=== PATIENT | male | born 1960 | race Caucasian/White ===

== ENCOUNTER 2016-06-13 11:53 | Inpatient (IN) | payer OTHER ==
[2016-06-13 14:09] VITALS: BMI 39.4
--- NOTE | 2016-06-13 14:52 | HP ---
CIWA Score - CIWA Score Nausea/Vomitin-No Nausea/No Vomiting Muscle Tremors: 4-Moderate,w/Arms Extend Anxiety: 4-Mod. Anxious/Guarded Agitation: 4-Moderately Restless Paroxysmal Sweats: 3 Orientation: 0-Oriented Tacttile Disturbances: 0-None Auditory Disturbances: 0-None Visual Disturbances: 0-None Headache: 0-None Present CIWA-Ar Total Score: 15 Admission ROS BHS - HPI Chief Complaint: I am here to detox off the xanax Allergies/Adverse Reactions: Allergies Allergy/AdvReac Type Severity Reaction Status Date / Time NSAIDS (Non-Steroidal Allergy Severe Swelling Verified 06/13/16 14:11 Anti-Inflamma History of Present Illness: pt is a 56yr old male with a history of benzodiazapine dependence seeking detox for treatment. pt is on 80mg last dose received today. verification done. Exam Limitations: No Limitations - Ebola screening Have you traveled outside of the country in the last 21 days: No Have you had contact with anyone from an Ebola affected area: No Have you been sick,other than usual withdrawal symptoms: No Do you have a fever: No - Review of Systems Constitutional: Chills, Diaphoresis EENT: reports: Tearing, Nose Congestion Respiratory: reports: No Symptoms reported Cardiac: reports: No Symptoms Reported GI: reports: Poor Appetite, Poor Fluid Intake : reports: No Symptoms Reported Musculoskeletal: reports: No Symptoms Reported Integumentary: reports: Sweating Neuro: reports: Tingling, Tremors Endocrine: reports: Excessive Sweating, Flushing, Intolerance to Cold, Intolerance to Heat Hematology: reports: No Symptoms Reported Psychiatric: reports: Judgement Intact, Mood/Affect Appropiate, Orientated x3, Agitated, Anxious Other Systems: Reviewed and Negative Patient History - Patient Medical History Hx Anemia: No Hx Asthma: No Hx Chronic Obstructive Pulmonary Disease (COPD): No Hx Cancer: No Hx Cardiac Disorders: No Hx Congestive Heart Failure: No Hx Hypertension: No Hx Hypercholesterolemia: No Hx Pacemaker: No HX Cerebrovascular Accident: No Hx Seizures: No Hx Diabetes: No Hx Gastrointestinal Disorders: No Hx Liver Disease: No Hx Genitourinary Disorders: No Hx Sexually Transmitted Disorders: No Hx Renal Disease (ESRD): No Hx Thyroid Disease: No Hx Human Immunodeficiency Virus (HIV): No (NEGATIVE HX) Hx Hepatitis C: No Hx Depression: Yes Hx Suicide Attempt: No Hx Bipolar Disorder: No Hx Schizophrenia: No - Patient Surgical History Past Surgical History: No Hx Neurologic Surgery: No Hx Cataract Extraction: No Hx Cardiac Surgery: No Hx Lung Surgery: No Hx Breast Surgery: No Hx Breast Biopsy: No Hx Abdominal Surgery: No Hx Appendectomy: No Hx Cholecystectomy: No Hx Genitourinary Surgery: No Hx Orthopedic Surgery: No Anesthesia Reaction: No - PPD History Previous Implant?: Yes Documented Results: Negative w/proof Implanted On Prior [facility] Admission?: Yes Date: 03/19/16 Results: 0 mm PPD to be Administered?: No - Reproductive History Patient is a Female of Child Bearing Age (11 -55 yrs old): No - Smoking Cessation Smoking history: Current every day smoker Have you smoked in the past 12 months: Yes Aproximately how many cigarettes per day: 10 Hx Chewing Tobacco Use: No Initiated information on smoking cessation: Yes 'Breaking Loose' booklet given: 06/13/16 - Substance & Tx. History Hx Alcohol Use: No Hx Substance Use: Yes Substance Use Type: Tranquilizers Hx Substance Use Treatment: Yes - Substances Abused Xanax Route: Oral Frequency: Daily Amount used: 4-6 mg. Age of first use: 54 Date of Last Use: 06/12/16 Family Disease History - Family Disease History Family History: Denies Admission Physical Exam BHS - Vital Signs Vital Signs: Vital Signs - 24 hr 06/13/16 14:05 Temperature 96.8 F L Pulse Rate 71 Respiratory 18 Rate Blood Pressure 151/74 - Physical General Appearance: Yes: Appropriately Dressed, Mild Distress, Obese, Tremorous , Irritable, Sweating, Anxious HEENTM: Yes: Normal Voice, Nasal Congestion Respiratory: Yes: Lungs Clear, Normal Breath Sounds, No Respiratory Distress Neck: Yes: No masses,lesions,Nodules Breast: Yes: Within Normal Limits Cardiology: Yes: Regular Rhythm, Regular Rate, S1, S2 Abdominal: Yes: Normal Bowel Sounds, Non Tender Genitourinary: Yes: Within Normal Limits Back: Yes: Normal Inspection Musculoskeletal: Yes: full range of Motion, Gait Steady Extremities: Yes: Normal Capillary Refill, Normal Inspection, Tremors Neurological: Yes: Fully Oriented, Alert, Normal Response Integumentary: Yes: Normal Color, Diaphoresis Lymphatic: Yes: Within Normal Limits - Diagnostic (1) Nicotine dependence Current Visit: Yes Status: Chronic Qualifiers: Nicotine product type: cigarettes Substance use status: uncomplicated Qualified Code(s): F17.210 - Nicotine dependence, cigarettes, uncomplicated (2) Uncomplicated sedative, 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 Cleared for Admission [facility] - Detox or Rehab [facility] Level of Care: Medically Managed Detox Regimen/Protocol: Valium S Breath Alcohol Content Breath Alcohol Content: 0 Urine Drug Screen - Results Drug Screen Negative: No Urine Drug Screen Results: BZO-Benzodiazepines, MTD-Methadone
[2016-06-13] MEDS ORDERED: NICOTINE POLACRILEX 4 MG GUM BUC PRN (15:10)
[2016-06-13] MEDS ORDERED: P-EPHED 60MG/TRIPROLIDI 2.5MG TABLET PO PRN (15:10)
[2016-06-13] MEDS ORDERED: MAG HYDROX/AL HYDROX/SIMETH 30 ML UNIT-DOSE CUP PO PRN (15:10)
[2016-06-13] MEDS ORDERED: MAGNESIUM HYDROX 2400MG/30ML ORAL SUSPENSION 30 ML CUP PO PRN (15:10)
[2016-06-13] MEDS ORDERED: ACETAMINOPHEN 325 MG TABLET (FP) PO PRN (15:10)
[2016-06-13] MEDS ORDERED: hydrOXYzine PAMOATE 50 MG CAPSULE (FP) PO PRN (15:10)
[2016-06-13] MEDS ORDERED: LOPERAMIDE HCL 2 MG CAPSULE PO PRN (15:10)
[2016-06-13] MEDS ORDERED: MENTHOL/PHENOL 1 EACH UD MM PRN (15:10)
[2016-06-13] MEDS ORDERED: guaiFENesin/D-METHORPHAN HB 10 ML UNIT-DOSE CUPS PO PRN (15:10)
[2016-06-13] MEDS ORDERED: MAGNESIUM CITRATE 300 ML BOTTLE PO PRN (15:10)
[2016-06-13] MEDS ORDERED: diazePAM 5 MG TABLET PO ONE (15:19)
[2016-06-13] MEDS: diazePAM 5 MG TABLET PO SCH ×2 (15:23→22:18)
[2016-06-13] MEDS: diazePAM 5 MG TABLET PO PRN (20:11)
[2016-06-13 20:20] LABS: URINE APPEARANCE CLEAR; URINE BILIRUBIN NEGATIVE (NEGATIVE); URINE COLOR STRAW; URINE GLUCOSE (UA) NEGATIVE (NEGATIVE); URINE KETONE NEGATIVE (NEGATIVE); URINE LEUK ESTERASE NEGATIVE (NEGATIVE); URINE NITRITE NEGATIVE (NEGATIVE); URINE PROTEIN NEGATIVE (NEGATIVE); URINE UROBILINOGEN NEGATIVE E.U./dl (0.2-1.0)
[2016-06-13 20:23] LABS: URINE BLOOD 1+ (NEGATIVE)
[2016-06-13 20:35] LABS: URINE RBC <1 /hpf (0-3); URINE WBC <1 /hpf (3-5)
[2016-06-13] MEDS: THIAMINE HCL 100 MG TABLET (FP) PO SCH (22:18)
[2016-06-13] MEDS: diphenhydrAMINE HCL 50 MG CAPSULE PO PRN (22:18)
[2016-06-14] MEDS: diazePAM 5 MG TABLET PO SCH ×3 (05:49→22:08)
[2016-06-14] MEDS: METHADONE HCL 40 MG DISPERSABLE TABLET PO SCH (05:49)
[2016-06-14] MEDS: diazePAM 5 MG TABLET PO PRN ×2 (08:36→17:56)
[2016-06-14] MEDS: PRENATAL VITAMINS W/ FOLIC ACID TABLET (FP) PO SCH (10:15)
[2016-06-14] MEDS: NICOTINE 21 MG/24 HOURS TOPICAL PATCH TD SCH (10:15)
[2016-06-14 10:33] LABS: ALBUMIN 3.9 g/dl (3.4-5.0); ALK PHOS 85 U/L (45-117); ANION GAP 11 (8-16); BILIRUBIN,TOTAL 0.4 mg/dL (0.2-1.0); CALCIUM 9.1 mg/dL (8.5-10.1); CO2 27 mmol/L (21-32); CREATININE 0.9 mg/dL (0.7-1.3); GLUCOSE,RANDOM 131 mg/dL (74-106); SGOT/AST 18 U/L (15-37); SGPT/ALT 25 U/L (12-78); TOT PROT 7.7 g/dl (6.4-8.2)
[2016-06-14 10:35] LABS: MCH 29.8 pg (25.7-33.7); MCHC 33.2 g/dl (32.0-35.9); MEAN CELL VOLUME 89.8 fl (80-96); MEAN PLT VOLUME 8.9 fl (7.5-11.1); PLATELET COUNT 209 K/MM3 (134-434); WHITE BLOOD COUNT 9.6 K/mm3 (4.0-10.0)
--- NOTE | 2016-06-14 13:35 | EKG ---
Test Reason : Blood Pressure : / mmHG Vent. Rate : 062 BPM Atrial Rate : 062 BPM P-R Int : 136 ms QRS Dur : 092 ms QT Int : 432 ms P-R-T Axes : 000 140 142 degrees QTc Int : 438 ms NORMAL SINUS RHYTHM WITH SINUS ARRHYTHMIA RIGHT AXIS DEVIATION LOW VOLTAGE QRS ABNORMAL ECG WHEN COMPARED WITH ECG OF 13-SEP-2004 15:13, QRS AXIS SHIFTED RIGHT Confirmed by ANNE MARIE ASKEW, WESLEY ([id number]) on 06/14/2016 1:35:04 PM Referred By: Confirmed By:WESLEY KENNEY MD
[2016-06-14] MEDS: CYCLOBENZAPRINE HCL 10 MG TABLET (FP) PO SCH ×2 (13:46→22:09)
--- NOTE | 2016-06-14 16:29 | CONSULT ---
[facility] Psychiatric Consult - Data Date of interview: 06/14/16 Admission source: [facility] Identifying data: New admission to [facility] for this 56 y/o male seeking detox treatment on for dependence.Patient is single without children,domiciled,unemployed and supported on SSI benefits. Substance Abuse History: - Smoking Cessation. Smoking history: Current every day smoker. Have you smoked in the past 12 months: Yes. Aproximately how many cigarettes per day: 10. Hx Chewing Tobacco Use: No. Initiated information on smoking cessation: Yes. 'Breaking Loose' booklet given: 06/13/16. - Substance & Tx. History. Hx Alcohol Use: No. Hx Substance Use: Yes. Substance Use Type : Tranquilizers. Hx Substance Use Treatment: Yes. - Substances Abused. Xanax. Route: Oral. Frequency: Daily. Amount used: 4-6 mg. Age of first use : 54. Date of Last Use: 06/12/16. Confirmed by the patient in this interview. Medical History: Patient endorses good general health. Psychiatric History: No reported history of psychiatric hospitalizations.Mr Frank indicates that,until three weeks ago,he was seeing a private psychiatrist for medication management (diagnosed with post-traumatic stress disorder,depressive disorder and anxiety disorder).Medications : lexapro 10 mg/ day + ambien 10 mg/hs.Verified by review of pharmacy claims (filled scripts for both drugs on 05/09/16 @ [facility]).Patient denies history of suicide attempts. Physical/Sexual Abuse/Trauma History: Patient denies. Additional Comment: Urine Drug Screen Results: BZO-Benzodiazepines, MTD- Methadone.Noted. Mental Status Exam - Mental Status Exam Alert and Oriented to: Time, Place, Person Cognitive Function: Good Patient Appearance: Well Groomed Mood: Withdrawn, Hopeful Affect: Appropriate, Normal Range Patient Behavior: Fatigued, Appropriate, Cooperative Speech Pattern: Clear Voice Loudness: Normal Thought Process: Goal Oriented Hallucinations: Denies Suicidal Ideation: Denies Homicidal Ideation: Denies Insight/Judgement: Fair Sleep: Poorly, Difficulty falling asleep Appetite: Good Muscle strength/Tone: Normal Gait/Station: Normal Psychiatric Findings - Problem List ([place] 1, 2,3) (1) Uncomplicated sedative, hypnotic or anxiolytic withdrawal Current Visit: Yes Status: Chronic (2) Opioid dependence with withdrawal Current Visit: Yes Status: Acute (3) Opioid dependence on agonist therapy Current Visit: Yes Status: Acute (4) Nicotine dependence Current Visit: Yes Status: Chronic Qualifiers: Nicotine product type: cigarettes Substance use status: uncomplicated Qualified Code(s): F17.210 - Nicotine dependence, cigarettes, uncomplicated (5) Substance-induced sleep disorder Current Visit: Yes Status: Acute (6) MDD (major depressive disorder) Current Visit: Yes Status: Chronic Comment: Historical diagnosis. - Initial Treatment Plan Initial Treatment Plan: Psychoeducation.Detoxification.Medications : zoloft 50 mg po daily.Side effects/benefits discussed with patient.He declines to take ambien because,in his case," benadryl works better." He has also made clear to this check writer salesperson that he prefers sertraline over lexapro (noted in pharmacy claims). " I did not take it because I did not like the way it makes me feel." Patient has,verbally,consented to take zoloft and benadryl.Observation.
--- NOTE | 2016-06-14 17:42 | PN ---
S CIWA - CIWA Score Nausea/Vomitin-Mild Nausea/No Vomiting Muscle Tremors: 4-Moderate,w/Arms Extend Anxiety: 4-Mod. Anxious/Guarded Agitation: 3 Paroxysmal Sweats: 3 Orientation: 0-Oriented Tacttile Disturbances: 0-None Auditory Disturbances: 0-None Visual Disturbances: 0-None Headache: 0-None Present CIWA-Ar Total Score: 15 BHS Progress Note (SOAP) Subjective: ANXIETY,TREMORS,SWEATING,INTERRUPTED SLEEP,RESTLESS Objective: 06/14/16 17:41 Vital Signs - 8 hr 06/14/16 06/14/16 13:17 17:24 Temperature 97.8 F 97.3 F L Pulse Rate 53 L 61 Respiratory 18 18 Rate Blood Pressure 122/72 112/64 Laboratory Tests 06/13/16 06/14/16 06/14/16 19:45 06:00 06:00 WBC 9.6 RBC 4.98 Hgb 14.9 Hct 44.7 MCV 89.8 MCHC 33.2 RDW 14.0 Plt Count 209 MPV 8.9 Sodium 138 Potassium 4.1 Chloride 100 Carbon Dioxide 27 Anion Gap 11 BUN 8 D Creatinine 0.9 Creat Clearance w eGFR > 60 Random Glucose 131 H D Calcium 9.1 Total Bilirubin 0.4 D AST 18 D ALT 25 D Alkaline Phosphatase 85 Total Protein 7.7 Albumin 3.9 Urine Color Straw Urine Appearance Clear Urine pH 7.0 D Ur Specific [place] 1.003 Urine Protein Negative Urine Glucose (UA) Negative Urine Ketones Negative Urine Blood 1+ H Urine Nitrite Negative Urine Bilirubin Negative Urine Urobilinogen Negative Ur Leukocyte Esterase Negative Urine RBC <1 Urine WBC <1 RPR Titer 06/14/16 06:00 WBC RBC Hgb Hct MCV MCHC RDW Plt Count MPV Sodium Potassium Chloride Carbon Dioxide Anion Gap BUN Creatinine Creat Clearance w eGFR Random Glucose Calcium Total Bilirubin AST ALT Alkaline Phosphatase Total Protein Albumin Urine Color Urine Appearance Urine pH Ur Specific [place] Urine Protein Urine Glucose (UA) Urine Ketones Urine Blood Urine Nitrite Urine Bilirubin Urine Urobilinogen Ur Leukocyte Esterase Urine RBC Urine WBC RPR Titer Nonreactive LABS NOTED Assessment: 06/14/16 17:41 WITHDRAWAL SX. Plan: CONTINUE DETOX
[2016-06-14] MEDS: THIAMINE HCL 100 MG TABLET (FP) PO SCH (22:08)
[2016-06-14] MEDS: diphenhydrAMINE HCL 50 MG CAPSULE PO PRN (22:09)
[2016-06-15] MEDS: METHADONE HCL 40 MG DISPERSABLE TABLET PO SCH (05:55)
[2016-06-15] MEDS: CYCLOBENZAPRINE HCL 10 MG TABLET (FP) PO SCH ×3 (05:55→22:09)
[2016-06-15] MEDS: NICOTINE 21 MG/24 HOURS TOPICAL PATCH TD SCH (10:15)
[2016-06-15] MEDS: PRENATAL VITAMINS W/ FOLIC ACID TABLET (FP) PO SCH (10:15)
[2016-06-15] MEDS: diazePAM 5 MG TABLET PO SCH ×2 (10:15→22:09)
[2016-06-15] MEDS: SERTRALINE HCL 50 MG TABLET (FP) PO SCH (10:16)
--- NOTE | 2016-06-15 11:57 | PN ---
[facility] CIWA - CIWA Score Nausea/Vomitin-No Nausea/No Vomiting Muscle Tremors: 4-Moderate,w/Arms Extend Anxiety: 4-Mod. Anxious/Guarded Agitation: 4-Moderately Restless Paroxysmal Sweats: 3 Orientation: 0-Oriented Tacttile Disturbances: 1-Very Mild Itch/Numbness Auditory Disturbances: 0-None Visual Disturbances: 0-None Headache: 0-None Present CIWA-Ar Total Score: 16 BHS Progress Note (SOAP) Subjective: ANXIETY,SWEATING,TREMORS,INTERRUPTED SLEEP,RESTLESS Objective: 06/15/16 11:56 Vital Signs - 8 hr 06/15/16 06/15/16 06:58 10:07 Temperature 95.6 F L 95.9 F L Pulse Rate 54 L 56 L Respiratory 18 18 Rate Blood Pressure 131/75 135/84 Laboratory Tests 06/13/16 06/14/16 06/14/16 19:45 06:00 06:00 WBC 9.6 RBC 4.98 Hgb 14.9 Hct 44.7 MCV 89.8 MCHC 33.2 RDW 14.0 Plt Count 209 MPV 8.9 Sodium 138 Potassium 4.1 Chloride 100 Carbon Dioxide 27 Anion Gap 11 BUN 8 D Creatinine 0.9 Creat Clearance w eGFR > 60 Random Glucose 131 H D Calcium 9.1 Total Bilirubin 0.4 D AST 18 D ALT 25 D Alkaline Phosphatase 85 Total Protein 7.7 Albumin 3.9 Urine Color Straw Urine Appearance Clear Urine pH 7.0 D Ur Specific [place] 1.003 Urine Protein Negative Urine Glucose (UA) Negative Urine Ketones Negative Urine Blood 1+ H Urine Nitrite Negative Urine Bilirubin Negative Urine Urobilinogen Negative Ur Leukocyte Esterase Negative Urine RBC <1 Urine WBC <1 RPR Titer 06/14/16 06:00 WBC RBC Hgb Hct MCV MCHC RDW Plt Count MPV Sodium Potassium Chloride Carbon Dioxide Anion Gap BUN Creatinine Creat Clearance w eGFR Random Glucose Calcium Total Bilirubin AST ALT Alkaline Phosphatase Total Protein Albumin Urine Color Urine Appearance Urine pH Ur Specific [place] Urine Protein Urine Glucose (UA) Urine Ketones Urine Blood Urine Nitrite Urine Bilirubin Urine Urobilinogen Ur Leukocyte Esterase Urine RBC Urine WBC RPR Titer Nonreactive LABS NOTED Assessment: 06/15/16 11:56 WITHDRAWAL SX. Plan: CONTINUE DETOX
[2016-06-15] MEDS: diazePAM 5 MG TABLET PO PRN (13:54)
[2016-06-15] MEDS: diphenhydrAMINE HCL 50 MG CAPSULE PO PRN (22:09)
[2016-06-15] MEDS: THIAMINE HCL 100 MG TABLET (FP) PO SCH (22:09)
[2016-06-16] MEDS: METHADONE HCL 40 MG DISPERSABLE TABLET PO SCH (05:15)
[2016-06-16] MEDS: CYCLOBENZAPRINE HCL 10 MG TABLET (FP) PO SCH ×3 (05:16→22:01)
[2016-06-16] MEDS: NICOTINE 21 MG/24 HOURS TOPICAL PATCH TD SCH (10:01)
[2016-06-16] MEDS: SERTRALINE HCL 50 MG TABLET (FP) PO SCH (10:01)
[2016-06-16] MEDS: diazePAM 5 MG TABLET PO SCH ×2 (10:01→22:01)
[2016-06-16] MEDS: PRENATAL VITAMINS W/ FOLIC ACID TABLET (FP) PO SCH (10:01)
--- NOTE | 2016-06-16 10:07 | PN ---
BHS Progress Note (SOAP) Subjective: sweating,interrupted sleep,restless Objective: 06/16/16 10:06 Vital Signs - 8 hr 06/16/16 06/16/16 06/16/16 03:30 06:22 09:56 Temperature 96.6 F L 96.8 F L Pulse Rate 56 L 81 Respiratory 20 18 18 Rate Blood Pressure 130/69 137/81 Laboratory Tests 06/13/16 06/14/16 06/14/16 19:45 06:00 06:00 WBC 9.6 RBC 4.98 Hgb 14.9 Hct 44.7 MCV 89.8 MCHC 33.2 RDW 14.0 Plt Count 209 MPV 8.9 Sodium 138 Potassium 4.1 Chloride 100 Carbon Dioxide 27 Anion Gap 11 BUN 8 D Creatinine 0.9 Creat Clearance w eGFR > 60 Random Glucose 131 H D Calcium 9.1 Total Bilirubin 0.4 D AST 18 D ALT 25 D Alkaline Phosphatase 85 Total Protein 7.7 Albumin 3.9 Urine Color Straw Urine Appearance Clear Urine pH 7.0 D Ur Specific [place] 1.003 Urine Protein Negative Urine Glucose (UA) Negative Urine Ketones Negative Urine Blood 1+ H Urine Nitrite Negative Urine Bilirubin Negative Urine Urobilinogen Negative Ur Leukocyte Esterase Negative Urine RBC <1 Urine WBC <1 RPR Titer 06/14/16 06:00 WBC RBC Hgb Hct MCV MCHC RDW Plt Count MPV Sodium Potassium Chloride Carbon Dioxide Anion Gap BUN Creatinine Creat Clearance w eGFR Random Glucose Calcium Total Bilirubin AST ALT Alkaline Phosphatase Total Protein Albumin Urine Color Urine Appearance Urine pH Ur Specific [place] Urine Protein Urine Glucose (UA) Urine Ketones Urine Blood Urine Nitrite Urine Bilirubin Urine Urobilinogen Ur Leukocyte Esterase Urine RBC Urine WBC RPR Titer Nonreactive labs noted Assessment: 06/16/16 10:07 withdrawal sx Plan: continue detox
[2016-06-16] MEDS: THIAMINE HCL 100 MG TABLET (FP) PO SCH (22:01)
[2016-06-17] MEDS: CYCLOBENZAPRINE HCL 10 MG TABLET (FP) PO SCH (05:52)
[2016-06-17] MEDS: METHADONE HCL 40 MG DISPERSABLE TABLET PO SCH (05:52)
[2016-06-17 06:56] VITALS: BP 146/76; PULSE 71; TEMP 96.3
[2016-06-17] MEDS: PRENATAL VITAMINS W/ FOLIC ACID TABLET (FP) PO SCH (09:03)
[2016-06-17] MEDS: NICOTINE 21 MG/24 HOURS TOPICAL PATCH TD SCH (09:03)
[2016-06-17] MEDS: SERTRALINE HCL 50 MG TABLET (FP) PO SCH (09:05)
--- NOTE | 2016-06-17 09:49 | DS ---
[facility] Detox Discharge Summary Admission Date: 06/13/16 Discharge Date: 06/17/16 - History Present History: Sedative Dependence Pertinent Past History: Denies - Physical Exam Results Vital Signs: Vital Signs Temperature 96.3 F L 06/17/16 06:56 Pulse Rate 71 06/17/16 06:56 Respiratory Rate 18 06/17/16 06:56 Blood Pressure 146/76 06/17/16 06:56 O2 Sat by Pulse Oximetry (%) Laboratory Last Values WBC 9.6 K/mm3 (4.0-10.0) 06/14/16 06:00 RBC 4.98 M/mm3 (4.00-5.60) 06/14/16 06:00 Hgb 14.9 GM/dL (11.7-16.9) 06/14/16 06:00 Hct 44.7 % (35.4-49) 06/14/16 06:00 MCV 89.8 fl (80-96) 06/14/16 06:00 MCHC 33.2 g/dl (32.0-35.9) 06/14/16 06:00 RDW 14.0 % (11.9-15.9) 06/14/16 06:00 Plt Count 209 K/MM3 (134-434) 06/14/16 06:00 MPV 8.9 fl (7.5-11.1) 06/14/16 06:00 Sodium 138 mmol/L (136-145) 06/14/16 06:00 Potassium 4.1 mmol/L (3.5-5.1) 06/14/16 06:00 Chloride 100 mmol/L (98-107) 06/14/16 06:00 Carbon Dioxide 27 mmol/L (21-32) 06/14/16 06:00 Anion Gap 11 (8-16) 06/14/16 06:00 BUN 8 mg/dL (7-18) D 06/14/16 06:00 Creatinine 0.9 mg/dL (0.7-1.3) 06/14/16 06:00 Creat Clearance w eGFR > 60 (>60) 06/14/16 06:00 Random Glucose 131 mg/dL (74-106) H D 06/14/16 06:00 Calcium 9.1 mg/dL (8.5-10.1) 06/14/16 06:00 Total Bilirubin 0.4 mg/dL (0.2-1.0) D 06/14/16 06:00 AST 18 U/L (15-37) D 06/14/16 06:00 ALT 25 U/L (12-78) D 06/14/16 06:00 Alkaline Phosphatase 85 U/L (45-117) 06/14/16 06:00 Total Protein 7.7 g/dl (6.4-8.2) 06/14/16 06:00 Albumin 3.9 g/dl (3.4-5.0) 06/14/16 06:00 Urine Color Straw 06/13/16 19:45 Urine Appearance Clear 06/13/16 19:45 Urine pH 7.0 (5.0-8.0) D 06/13/16 19:45 Ur Specific [place] 1.003 (1.001-1.035) 06/13/16 19:45 Urine Protein Negative (NEGATIVE) 06/13/16 19:45 Urine Glucose (UA) Negative (NEGATIVE) 06/13/16 19:45 Urine Ketones Negative (NEGATIVE) 06/13/16 19:45 Urine Blood 1+ (NEGATIVE) H 06/13/16 19:45 Urine Nitrite Negative (NEGATIVE) 06/13/16 19:45 Urine Bilirubin Negative (NEGATIVE) 06/13/16 19:45 Urine Urobilinogen Negative E.U./dl (0.2-1.0) 06/13/16 19:45 Ur Leukocyte Esterase Negative (NEGATIVE) 06/13/16 19:45 Urine RBC <1 /hpf (0-3) 06/13/16 19:45 Urine WBC <1 /hpf (3-5) 06/13/16 19:45 RPR Titer Nonreactive (NONREACTIVE) 06/14/16 06:00 labs noted Pertinent Admission Physical Exam Findings: Withdrawal symptoms - Treatment Hospital Course: Detox Protocol Followed, Detoxed Safely, Responded well, Discharged Condition Good - Medication Discharge Medications: Ambulatory Orders Sertraline HCl [Zoloft -] 50 mg PO DAILY #30 tablet 03/17/16 Zolpidem Tartrate [Ambien] 10 mg PO HS 03/17/16 Sertraline HCl [Zoloft -] 50 mg PO DAILY #30 tablet 06/14/16 - Diagnosis (1) Opioid dependence on agonist therapy Status: Acute (2) Substance-induced sleep disorder Status: Acute (3) MDD (major depressive disorder) Status: Chronic (4) Methadone maintenance therapy patient Status: Chronic (5) Nicotine dependence Status: Chronic Qualifiers: Nicotine product type: cigarettes Substance use status: uncomplicated Qualified Code(s): F17.210 - Nicotine dependence, cigarettes, uncomplicated (6) Uncomplicated sedative, hypnotic or anxiolytic withdrawal Status: Acute - AMA Did Patient Leave Against Medical Advice: No
[2016-06-17] MEDS ORDERED: diazePAM 5 MG TABLET PO SCH (10:00)
== END 2016-06-17 09:06 | disposition home or self-care (01) | DRG 773 ==
LOC: YASAS 11:53 → Y3N 14:54
PROVIDERS: ADMIT Internal Medicine; ATTEND Internal Medicine
PROC: HZ2ZZZZ Detoxification Services for Substance Abuse Treatment (ICD-10-PCS; principal; 2016-06-17)
DX: F11.23 Opioid dependence with withdrawal (principal); F13.230 Sedative, hypnotic or anxiolytic dependence with withdrawal, uncomplicated; F17.210 Nicotine dependence, cigarettes, uncomplicated; F19.282 Other psychoactive substance dependence with psychoactive substance-induced sleep disorder; F33.9 Major depressive disorder, recurrent, unspecified
CPT/HCPCS: 36415; 80053; 81003; 81015; 85027; 86593; 93005; 93010